=== PATIENT | female | born 2000 | race Two or more races ===

== ENCOUNTER 2021-04-28 17:31 | Emergency (ER) | payer OTHER ==
[~2021-04-28] VITALS: Ht 167.6 cm; Wt 77.1 kg
[2021-04-28 17:31] VITALS: BP 126/87
[2021-04-28] MEDS ORDERED: ACETAMINOPHEN 500 MG TAB PO ONE (18:15)
== END 2021-04-28 21:42 | disposition home or self-care (01) ==
LOC: ER 17:31
DX: J02.9 Acute pharyngitis, unspecified (principal); Z20.822 Contact with and (suspected) exposure to COVID-19
CPT/HCPCS: 36415; 87426